=== PATIENT | female | born 1945 | race Caucasian/White ===

== ENCOUNTER 2018-01-13 06:34 | Day surgery (SDC) | payer MEDICARE, MEDICAID ==
[~2018-01-13] VITALS: Ht 167.6 cm; Wt 115.8 kg
[2018-01-13] MEDS ORDERED: ceFAZolin inj. 2,000 MG in normal saline soln 50 ML IV ONE ×3 (06:55→08:45)
[2018-01-13] MEDS ORDERED: normal saline 1000ml 1,000 ML IV PRN (06:55)
[2018-01-13 07:40] VITALS: BP 113/62
[2018-01-13 07:40] LABS: BASOPHILS # (AUTO) 0.1 X10'3 (0-0.2); BASOPHILS % (AUTO) 0.8 % (0-1); EOSINOPHILS # (AUTO) 0.3 X10'3 (0-0.9); EOSINOPHILS % (AUTO) 3.5 % (0-6); LYMPHOCYTES # (AUTO) 1.8 X10'3 (1.1-4.8); LYMPHOCYTES % (AUTO) 20.8 % (21-51); MEAN CORPUSCULAR HEMOGLOBIN 28.2 PG (27.0-31.0); MEAN CORPUSCULAR HGB CONC 32.1 % (33.0-36.5); MEAN PLATELET VOLUME 7.8 FL (7.4-10.4); MONOCYTES # (AUTO) 0.8 X10'3 (0-0.9); MONOCYTES % (AUTO) 9.1 % (2-12); NEUTROPHILS # (AUTO) 5.7 X10'3 (1.8-7.7); NEUTROPHILS % (AUTO) 65.8 % (42-75); PLATELET COUNT 403 X10'3 (140-440); RED BLOOD COUNT 2.85 X10'6 (4.20-5.60); RED CELL DISTRIBUTION WIDTH 19.8 % (11.5-14.5); WHITE BLOOD COUNT 8.7 X10'3 (4.5-11.0)
[2018-01-13] MEDS ORDERED: LISI10TA4 PO (07:44)
[2018-01-13] MEDS ORDERED: [UNRECOGNIZED DRUG - OTHER] PO (07:44)
[2018-01-13] MEDS ORDERED: ALBU18HF2 INH (07:44)
[2018-01-13] MEDS ORDERED: PROM25TA14 PO (07:44)
[2018-01-13] MEDS ORDERED: CLOP75TA35 PO (07:44)
[2018-01-13] MEDS ORDERED: GABA-532 PO (07:44)
[2018-01-13] MEDS ORDERED: ALLO100T PO (07:44)
[2018-01-13] MEDS ORDERED: METO50TA7 PO (07:44)
[2018-01-13] MEDS ORDERED: FOLI0.8T19 PO (07:44)
[2018-01-13] MEDS ORDERED: CEPH500C2 PO (07:44)
[2018-01-13] MEDS ORDERED: PHO667C PO (07:44)
[2018-01-13] MEDS ORDERED: TRAM50TA2 PO (07:44)
[2018-01-13] MEDS ORDERED: ATOR40TA PO (07:44)
[2018-01-13 07:55] LABS: ALBUMIN 2.6 G/DL (3.4-5.0); ANION GAP 13 (8-16); BLOOD UREA NITROGEN 51 MG/DL (7-18); BUN/CREATININE RATIO 6.2 (6.6-38.0); CALCIUM 8.3 MG/DL (8.5-10.1); CHLORIDE 97 MMOL/L (99-107); CREATININE 8.26 MG/DL (0.40-0.90); GLUCOSE 147 MG/DL (70-104); SODIUM 135 MMOL/L (135-145); TOTAL CARBON DIOXIDE 24.7 MMOL/L (24-32); eGFR 5 ML/MIN
[2018-01-13 07:57] LABS: INR 1.1 INR; PROTHROMBIN TIME 10.8 SECONDS (9.0-12.0)
[2018-01-13] MEDS ORDERED: LIDOcaine 1%/PF 5ML 10 MG/ML VIAL ONE (08:30)
[2018-01-13] MEDS ORDERED: normal saline 1000ml 1,000 ML IV SCH ×2 (08:33)
[2018-01-13] MEDS ORDERED: LIDOcaine 1%/PF 5ML 10 MG/ML VIAL SQ ONE (08:35)
[2018-01-13] MEDS ORDERED: midazolam 2 mg/2 ml injection IV PRN (08:35)
[2018-01-13] MEDS ORDERED: heparin 1,000 units/ml 10ml inj ICATH ONE (08:35)
[2018-01-13] MEDS ORDERED: fentaNYL/PF 50MCG/1 ML 2ML syringe IV PRN (08:35)
[2018-01-13] MEDS ORDERED: heparin 1,000unit/ml 10ml vial 10 ML ONE (08:36)
[2018-01-13] MEDS ORDERED: cephalexin 500mg capsule PO ONE (08:50)
[2018-01-13 09:40] VITALS: BP 112/47
[2018-01-13 09:55] VITALS: BP 95/38
[2018-01-13 10:10] VITALS: BP 114/45
[2018-01-13 10:25] VITALS: BP 96/71
[2018-01-13 10:40] VITALS: BP 92/69
== END 2018-01-13 11:10 | disposition home or self-care (01) ==
LOC: SSTAY O 06:34
PROVIDERS: ATTEND Radiology Diagnostic Radiology
DX: Z49.01 Encounter for fitting and adjustment of extracorporeal dialysis catheter (principal); I12.0 Hypertensive chronic kidney disease with stage 5 chronic kidney disease or end stage renal disease; E11.22 Type 2 diabetes mellitus with diabetic chronic kidney disease; N18.6 End stage renal disease; I25.10 Atherosclerotic heart disease of native coronary artery without angina pectoris; E66.9 Obesity, unspecified; I71.4 Abdominal aortic aneurysm, without rupture; J44.9 Chronic obstructive pulmonary disease, unspecified; K21.9 Gastro-esophageal reflux disease without esophagitis; I48.91 Unspecified atrial fibrillation; Z87.891 Personal history of nicotine dependence; Z95.5 Presence of coronary angioplasty implant and graft; Z98.41 Cataract extraction status, right eye; Z98.42 Cataract extraction status, left eye; Z88.5 Allergy status to narcotic agent; Z91.048 Other nonmedicinal substance allergy status; Z79.2 Long term (current) use of antibiotics; Z79.891 Long term (current) use of opiate analgesic; Z68.41 Body mass index [BMI] 40.0-44.9, adult; Z86.73 Personal history of transient ischemic attack (TIA), and cerebral infarction without residual deficits; Z86.69 Personal history of other diseases of the nervous system and sense organs; Z87.01 Personal history of pneumonia (recurrent); Z98.890 Other specified postprocedural states; Z79.899 Other long term (current) drug therapy
CPT/HCPCS: 36415; 36581; 77001; 80048; 85025; 85610; J0690; J1644; J2001; J7030; C1750; C1769

== ENCOUNTER 2018-01-25 10:49 | Day surgery (SDC) | payer MEDICARE, MEDICAID ==
[~2018-01-25] VITALS: Ht 167.6 cm; Wt 110.0 kg
[~2018-01-25 10:49] MED LIST: ALBU18HF2 INH; ALLO100T PO; ATOR40TA PO; CEPH500C2 PO; CLOP75TA35 PO; FOLI0.8T19 PO; GABA-532 PO; LISI10TA4 PO; METO50TA7 PO; PHO667C PO; PROM25TA14 PO; TRAM50TA2 PO; [UNRECOGNIZED DRUG - OTHER] PO
[2018-01-25] MEDS ORDERED: normal saline 1000ml 1,000 ML IV PRN (11:25)
[2018-01-25 11:27] VITALS: BP 134/74
[2018-01-25] MEDS ORDERED: cefazolin/dext.iso 2gm/50ml 50 ML IV ONE (11:30)
[2018-01-25] MEDS ORDERED: PHO667C PO (11:39)
[2018-01-25 12:05] LABS: BASOPHILS # (AUTO) 0.1 X10'3 (0-0.2); BASOPHILS % (AUTO) 1.2 % (0-1); EOSINOPHILS % (AUTO) 13.8 % (0-6); LYMPHOCYTES # (AUTO) 3.1 X10'3 (1.1-4.8); LYMPHOCYTES % (AUTO) 41.4 % (21-51); MEAN CORPUSCULAR HEMOGLOBIN 29.2 PG (27.0-31.0); MEAN CORPUSCULAR HGB CONC 32.8 % (33.0-36.5); MEAN CORPUSCULAR VOLUME 88.8 FL (78-98); MEAN PLATELET VOLUME 7.7 FL (7.4-10.4); MONOCYTES # (AUTO) 0.5 X10'3 (0-0.9); MONOCYTES % (AUTO) 6.5 % (2-12); NEUTROPHILS # (AUTO) 2.8 X10'3 (1.8-7.7); NEUTROPHILS % (AUTO) 37.1 % (42-75); PRE OP HEMATOCRIT 28.9 % (35.0-45.0); PRE OP PLATELET COUNT 507 X10'3 (140-440); RED BLOOD COUNT 3.25 X10'6 (4.20-5.60); RED CELL DISTRIBUTION WIDTH 19.1 % (11.5-14.5)
[2018-01-25 12:10] LABS: ALBUMIN 3.1 G/DL (3.4-5.0); ANION GAP 14 (8-16); BLOOD UREA NITROGEN 45 MG/DL (7-18); BUN/CREATININE RATIO 5.9 (6.6-38.0); CALCIUM 8.5 MG/DL (8.5-10.1); CHLORIDE 106 MMOL/L (99-107); CREATININE 7.67 MG/DL (0.40-0.90); GLUCOSE 101 MG/DL (70-104); POTASSIUM 5.2 MMOL/L (3.5-5.1); SODIUM 143 MMOL/L (135-145); eGFR 5 ML/MIN
[2018-01-25 12:11] LABS: INR 1.1 INR; PROTHROMBIN TIME 10.9 SECONDS (9.0-12.0)
[2018-01-25 12:19] LABS: PRE OP HEMOGLOBIN 9.5 g/dL (12.0-16.0)
[2018-01-25] MEDS ORDERED: heparin 1,000 units/ml 10ml inj ICATH ONE (13:35)
[2018-01-25] MEDS ORDERED: fentaNYL/PF 50MCG/1 ML 2ML syringe IV PRN (13:35)
[2018-01-25] MEDS ORDERED: midazolam 2 mg/2 ml injection IV PRN (13:35)
[2018-01-25] MEDS ORDERED: LIDOcaine 1%/PF 5ML 10 MG/ML VIAL SQ ONE (13:35)
[2018-01-25] MEDS ORDERED: midazolam 2 mg/2 ml injection ONE (13:38)
[2018-01-25] MEDS ORDERED: fentaNYL/PF 50MCG/1 ML 2ML syringe ONE (13:38)
[2018-01-25] MEDS ORDERED: LIDOcaine 1%/PF 5ML 10 MG/ML VIAL ONE (13:38)
[2018-01-25] MEDS ORDERED: heparin 1,000unit/ml 10ml vial 10 ML ONE (13:42)
[2018-01-25 14:35] VITALS: BP 153/73
[2018-01-25 14:50] VITALS: BP 146/62
== END 2018-01-25 15:00 | disposition home or self-care (01) ==
LOC: SSTAY O 10:49
PROVIDERS: ATTEND Radiology Diagnostic Radiology
DX: T82.49XA Other complication of vascular dialysis catheter, initial encounter (principal); Y83.8 Other surgical procedures as the cause of abnormal reaction of the patient, or of later complication, without mention of misadventure at the time of the procedure; Y92.89 Other specified places as the place of occurrence of the external cause; I12.0 Hypertensive chronic kidney disease with stage 5 chronic kidney disease or end stage renal disease; E11.22 Type 2 diabetes mellitus with diabetic chronic kidney disease; N18.6 End stage renal disease; I48.91 Unspecified atrial fibrillation; K21.9 Gastro-esophageal reflux disease without esophagitis; J44.9 Chronic obstructive pulmonary disease, unspecified; Z88.5 Allergy status to narcotic agent; Z91.048 Other nonmedicinal substance allergy status; Z79.891 Long term (current) use of opiate analgesic; Z86.73 Personal history of transient ischemic attack (TIA), and cerebral infarction without residual deficits; Z86.69 Personal history of other diseases of the nervous system and sense organs; Z87.891 Personal history of nicotine dependence; Z95.5 Presence of coronary angioplasty implant and graft; Z87.01 Personal history of pneumonia (recurrent); Z99.2 Dependence on renal dialysis; Z79.899 Other long term (current) drug therapy; Z98.890 Other specified postprocedural states
CPT/HCPCS: 36415; 36581; 77001; 80048; 82948; 85025; 85610; 99152; C1750; J0690; J1644; J2001; J2250; J3010; 99153; A9270

== ENCOUNTER 2018-03-17 08:23 | Day surgery (SDC) | payer MEDICARE, MEDICAID ==
[~2018-03-17] VITALS: Ht 168.9 cm; Wt 99.8 kg
[~2018-03-17 08:23] MED LIST changes: -CEPH500C2 PO; -PROM25TA14 PO; -[UNRECOGNIZED DRUG - OTHER] PO
[2018-03-17] MEDS ORDERED: normal saline 1000ml 1,000 ML IV PRN (08:40)
[2018-03-17] MEDS ORDERED: ceFAZolin 2gm in dextrose, iso 100 ML IV ONE (08:40)
[2018-03-17 09:11] LABS: BASOPHILS # (AUTO) 0.1 X10'3 (0-0.2); BASOPHILS % (AUTO) 1.1 % (0-1); EOSINOPHILS # (AUTO) 0.3 X10'3 (0-0.9); EOSINOPHILS % (AUTO) 4.2 % (0-6); HEMATOCRIT 43.6 % (35.0-45.0); HEMOGLOBIN 13.9 g/dl (12.0-16.0); LYMPHOCYTES # (AUTO) 2.6 X10'3 (1.1-4.8); LYMPHOCYTES % (AUTO) 32.1 % (21-51); MEAN CORPUSCULAR HEMOGLOBIN 29.1 PG (27.0-31.0); MEAN CORPUSCULAR HGB CONC 31.9 g/dL (33.0-36.5); MEAN CORPUSCULAR VOLUME 91.5 FL (78-98); MEAN PLATELET VOLUME 7.2 FL (7.4-10.4); MONOCYTES # (AUTO) 0.5 X10'3 (0-0.9); MONOCYTES % (AUTO) 6.6 % (2-12); NEUTROPHILS # (AUTO) 4.6 X10'3 (1.8-7.7); PLATELET COUNT 289 X10'3 (140-440); RED BLOOD COUNT 4.77 X10'6 (4.20-5.60); RED CELL DISTRIBUTION WIDTH 17.1 % (11.5-14.5); WHITE BLOOD COUNT 8.2 X10'3 (4.5-11.0)
[2018-03-17 09:22] LABS: ALBUMIN 3.1 G/DL (3.4-5.0); ANION GAP 12 (8-16); BLOOD UREA NITROGEN 36 MG/DL (7-18); BUN/CREATININE RATIO 5.9 (6.6-38.0); CALCIUM 9.8 MG/DL (8.5-10.1); CHLORIDE 97 MMOL/L (99-107); CREATININE 6.13 MG/DL (0.40-0.90); GLUCOSE 141 MG/DL (70-104); POTASSIUM 4.5 MMOL/L (3.5-5.1); SODIUM 136 MMOL/L (135-145); TOTAL CARBON DIOXIDE 26.8 MMOL/L (24-32); eGFR 7 ML/MIN
[2018-03-17 09:30] VITALS: BP 139/76
[2018-03-17] MEDS ORDERED: LEVO750T21 PO (09:54)
[2018-03-17] MEDS ORDERED: HYDR-4069 PO (09:54)
[2018-03-17] MEDS ORDERED: SEVE800T8 PO (09:54)
[2018-03-17] MEDS ORDERED: PROC25SU31 RC (09:55)
[2018-03-17] MEDS ORDERED: LIDOcaine 1%/PF 5ML 10 MG/ML VIAL ONE (10:53)
[2018-03-17] MEDS ORDERED: heparin 1,000unit/ml 10ml vial 10 ML ONE (11:05)
[2018-03-17 11:47] VITALS: BP 119/80
[2018-03-17 12:00] VITALS: BP 128/41
[2018-03-17 12:15] VITALS: BP 119/80
[2018-03-17 12:30] VITALS: BP 146/88
[2018-03-17 12:45] VITALS: BP 142/82
== END 2018-03-17 12:55 | disposition home or self-care (01) ==
LOC: SSTAY O 08:23
PROVIDERS: ATTEND Radiology Diagnostic Radiology
DX: N18.6 End stage renal disease (principal); Z79.01 Long term (current) use of anticoagulants; Z79.899 Other long term (current) drug therapy; Z88.6 Allergy status to analgesic agent; Z91.048 Other nonmedicinal substance allergy status; Z86.73 Personal history of transient ischemic attack (TIA), and cerebral infarction without residual deficits
CPT/HCPCS: 36415; 36581; 77001; 80048; 85025; C1750; J0690; J1644; J2001; J7030; A9270; C1769

== ENCOUNTER 2018-09-07 06:51 | Day surgery (SDC) | payer MEDICARE, MEDICAID ==
[2018-09-07] VITALS (7 sets, daily range): BP systolic 138–183; BP diastolic 68–95
[~2018-09-07] VITALS: Ht 167.6 cm; Wt 90.7 kg
[~2018-09-07 06:51] MED LIST changes: +HYDR-4069 PO; +LEVO750T21 PO; +PROC25SU31 RC; +SEVE800T8 PO
[2018-09-07] MEDS ORDERED: normal saline 1000ml 1,000 ML IV PRN (07:25)
[2018-09-07] MEDS ORDERED: tPA-cathflo 2 MG/2 ml IV flush ONE (08:07)
--- NOTE | 2018-09-07 08:15 | NUR ---
Dr Garcia and Moris RN here to administer TPA, prior to procedure. Unsuccessful IV attempts x2, picc nurse paged for assistance
[2018-09-07] MEDS ORDERED: alteplase 1 mg/ml 5ml syringe IJ ONE (08:20)
[2018-09-07] MEDS ORDERED: fentaNYL/PF 50MCG/1 ML 2ML syringe IV PRN (08:25)
[2018-09-07] MEDS ORDERED: LIDOcaine 1%/PF 5ML 10 MG/ML VIAL SQ ONE (08:25)
[2018-09-07] MEDS ORDERED: heparin 1,000 UNITS/NS 500ml 500 ML ICATH ONE (08:25)
[2018-09-07] MEDS ORDERED: midazolam 2 mg/2 ml injection IV PRN (08:25)
[2018-09-07] MEDS ORDERED: acetaminophen 325mg tablet PO PRN (08:45)
[2018-09-07] MEDS ORDERED: diphenhydrAMINE 25mg capsule PO ONE (08:45)
[2018-09-07 09:14] LABS: BASOPHILS # (AUTO) 0.1 X10'3 (0-0.2); BASOPHILS % (AUTO) 1.9 % (0-1); EOSINOPHILS # (AUTO) 0.5 X10'3 (0-0.9); EOSINOPHILS % (AUTO) 6.9 % (0-6); HEMATOCRIT 30.1 % (35.0-45.0); HEMOGLOBIN 9.7 g/dl (12.0-16.0); LYMPHOCYTES # (AUTO) 2.1 X10'3 (1.1-4.8); LYMPHOCYTES % (AUTO) 30.3 % (21-51); MEAN CORPUSCULAR HGB CONC 32.3 g/dL (33.0-36.5); MEAN PLATELET VOLUME 7.2 FL (7.4-10.4); MONOCYTES # (AUTO) 0.6 X10'3 (0-0.9); MONOCYTES % (AUTO) 8.1 % (2-12); NEUTROPHILS # (AUTO) 3.6 X10'3 (1.8-7.7); NEUTROPHILS % (AUTO) 52.8 % (42-75); PLATELET COUNT 313 X10'3 (140-440); RED BLOOD COUNT 3.24 X10'6 (4.20-5.60); RED CELL DISTRIBUTION WIDTH 18.7 % (11.5-14.5); WHITE BLOOD COUNT 6.9 X10'3 (4.5-11.0)
[2018-09-07 09:18] LABS: ALBUMIN 3.2 G/DL (3.4-5.0); ANION GAP 10 (8-16); BLOOD UREA NITROGEN 74 MG/DL (7-18); BUN/CREATININE RATIO 7.8 (6.6-38.0); CALCIUM 9.8 MG/DL (8.5-10.1); CHLORIDE 102 MMOL/L (99-107); CREATININE 9.47 MG/DL (0.40-0.90); GLUCOSE 100 MG/DL (70-104); POTASSIUM 5.9 MMOL/L (3.5-5.1); SODIUM 138 MMOL/L (135-145); TOTAL CARBON DIOXIDE 26.1 MMOL/L (24-32); eGFR 4 ML/MIN
--- NOTE | 2018-09-07 10:00 | NUR ---
Piv started in left AC by Colleen RN picc nurse
[2018-09-07 10:34] LABS: ANISOCYTOSIS 2+; PLATELET ESTIMATE NORMAL
[2018-09-07] MEDS ORDERED: fentaNYL/PF 50MCG/1 ML 2ML syringe ONE ×2 (10:39→11:23)
[2018-09-07] MEDS ORDERED: heparin 1,000 UNITS/NS 500ml 500 ML ONE (10:39)
[2018-09-07] MEDS ORDERED: midazolam 2 mg/2 ml injection ONE (10:39)
[2018-09-07] MEDS ORDERED: iohexol 300mg/ml 100ml inj. ONE (10:39)
[2018-09-07] MEDS ORDERED: hydrALAZINE 20mg/ml inj. IV ONE (11:03)
[2018-09-08] MEDS ORDERED: ASPI-1265 PO (09:29)
== END 2018-09-07 13:30 | disposition home or self-care (01) ==
LOC: SSTAY O 06:51
PROVIDERS: ATTEND Radiology Vascular & Interventional Radiology
DX: T82.858A Stenosis of other vascular prosthetic devices, implants and grafts, initial encounter (principal); Y83.8 Other surgical procedures as the cause of abnormal reaction of the patient, or of later complication, without mention of misadventure at the time of the procedure; I25.2 Old myocardial infarction; I12.0 Hypertensive chronic kidney disease with stage 5 chronic kidney disease or end stage renal disease; N18.6 End stage renal disease; Z98.890 Other specified postprocedural states; Z91.041 Radiographic dye allergy status; Z86.73 Personal history of transient ischemic attack (TIA), and cerebral infarction without residual deficits; Z95.0 Presence of cardiac pacemaker; Z88.6 Allergy status to analgesic agent; Z91.048 Other nonmedicinal substance allergy status; Z79.01 Long term (current) use of anticoagulants; Z79.899 Other long term (current) drug therapy
CPT/HCPCS: 36415; 36902; 80048; 85025; 99152; 99153; C1725; C1769; C1894; J0360; J1644; J2250; J2997; J3010; J7030; Q0163; Q9967

== ENCOUNTER 2018-09-08 08:12 | Day surgery (SDC) | payer MEDICARE, MEDICAID ==
[~2018-09-08] VITALS: Ht 167.6 cm; Wt 90.7 kg
[2018-09-08] VITALS (7 sets, daily range): BP systolic 140–179; BP diastolic 49–96
[2018-09-08] MEDS ORDERED: LIDOcaine 1%/PF 5ML 10 MG/ML VIAL SQ ONE (09:25)
[2018-09-08] MEDS ORDERED: fentaNYL/PF 50MCG/1 ML 2ML syringe IV PRN (09:25)
[2018-09-08] MEDS ORDERED: ASPI-1265 PO (09:29)
[2018-09-08] MEDS ORDERED: fentaNYL/PF 50MCG/1 ML 2ML syringe ONE (09:30)
[2018-09-08] MEDS ORDERED: LIDOcaine 1%/PF 5ML 10 MG/ML VIAL ONE (09:30)
--- NOTE | 2018-09-08 09:37 | NUR ---
EKG WAS DONE. ST DEPRESSION. EKG SHOWED TO DR GOLD. HE THOUGHT IT WAS DUE TO PT NEEDING DIALYSIS. PT TO ANGIO VIA ROSE MARIE VIA RN.
[2018-09-08] MEDS ORDERED: heparin 1,000unit/ml 10ml vial 10 ML ONE (09:38)
== END 2018-09-08 11:40 ==
LOC: SSTAY O 08:12
PROVIDERS: ATTEND Radiology Diagnostic Radiology
DX: T82.868A Thrombosis due to vascular prosthetic devices, implants and grafts, initial encounter (principal); N18.6 End stage renal disease; Y83.8 Other surgical procedures as the cause of abnormal reaction of the patient, or of later complication, without mention of misadventure at the time of the procedure; Z95.0 Presence of cardiac pacemaker; Z79.899 Other long term (current) drug therapy; Z88.6 Allergy status to analgesic agent; Z86.73 Personal history of transient ischemic attack (TIA), and cerebral infarction without residual deficits; Z79.01 Long term (current) use of anticoagulants
CPT/HCPCS: 36558; 76937; 77001; 93005; 99152; C1750; C1894; J1644; J3010; A9270

== ENCOUNTER 2018-09-19 06:33 | Day surgery (SDC) | payer MEDICARE, MEDICAID ==
[2018-09-19] VITALS (7 sets, daily range): BP systolic 120–147; BP diastolic 60–80
[~2018-09-19 06:33] MED LIST changes: +ASPI-1265 PO
[2018-09-19] MEDS ORDERED: normal saline 1000ml 1,000 ML IV PRN (06:55)
[2018-09-19] MEDS ORDERED: tPA-cathflo 2 MG/2 ml IV flush ONE ×2 (08:03→10:09)
[2018-09-19] MEDS ORDERED: fentaNYL/PF 50MCG/1 ML 2ML syringe ONE (08:51)
[2018-09-19] MEDS ORDERED: midazolam 2 mg/2 ml injection ONE (08:51)
[2018-09-19] MEDS ORDERED: LIDOcaine 1%/PF 5ML 10 MG/ML VIAL ONE (08:51)
[2018-09-19] MEDS ORDERED: heparin 1,000 UNITS/NS 500ml 500 ML ONE (08:52)
[2018-09-19] MEDS ORDERED: iohexol 300mg/ml 100ml inj. ONE (08:52)
[2018-09-19 09:18] LABS: BASOPHILS # (AUTO) 0.1 X10'3 (0-0.2); BASOPHILS % (AUTO) 1.5 % (0-1); EOSINOPHILS # (AUTO) 0.4 X10'3 (0-0.9); EOSINOPHILS % (AUTO) 5.7 % (0-6); HEMATOCRIT 31.2 % (35.0-45.0); HEMOGLOBIN 10.3 g/dl (12.0-16.0); LYMPHOCYTES # (AUTO) 2.3 X10'3 (1.1-4.8); LYMPHOCYTES % (AUTO) 31.7 % (21-51); MEAN CORPUSCULAR HGB CONC 32.9 g/dL (33.0-36.5); MEAN CORPUSCULAR VOLUME 94.3 FL (78-98); MEAN PLATELET VOLUME 7.5 FL (7.4-10.4); MONOCYTES # (AUTO) 0.5 X10'3 (0-0.9); MONOCYTES % (AUTO) 7.1 % (2-12); NEUTROPHILS # (AUTO) 3.9 X10'3 (1.8-7.7); PLATELET COUNT 314 X10'3 (140-440); RED BLOOD COUNT 3.31 X10'6 (4.20-5.60); RED CELL DISTRIBUTION WIDTH 20.3 % (11.5-14.5); WHITE BLOOD COUNT 7.2 X10'3 (4.5-11.0)
[2018-09-19 09:20] LABS: ALBUMIN 3.4 G/DL (3.4-5.0); ANION GAP 8 (8-16); BLOOD UREA NITROGEN 48 MG/DL (7-18); BUN/CREATININE RATIO 7.6 (6.6-38.0); CALCIUM 9.2 MG/DL (8.5-10.1); CHLORIDE 106 MMOL/L (99-107); CREATININE 6.28 MG/DL (0.40-0.90); GLUCOSE 98 MG/DL (70-104); SODIUM 141 MMOL/L (135-145); TOTAL CARBON DIOXIDE 27.2 MMOL/L (24-32); eGFR 7 ML/MIN
[2018-09-19 09:21] LABS: POTASSIUM 6.1 MMOL/L (3.5-5.1)
[2018-09-19 09:37] LABS: ANISOCYTOSIS 3+; PLATELET ESTIMATE NORMAL
[2018-09-19] MEDS ORDERED: heparin 1,000unit/ml 10ml vial 10 ML ONE (09:44)
[2018-09-19] MEDS ORDERED: APIX2.5T PO (13:39)
== END 2018-09-19 12:25 | disposition home or self-care (01) ==
LOC: SSTAY O 06:33
PROVIDERS: ATTEND Radiology Vascular & Interventional Radiology
DX: T82.868A Thrombosis due to vascular prosthetic devices, implants and grafts, initial encounter (principal); Y83.2 Surgical operation with anastomosis, bypass or graft as the cause of abnormal reaction of the patient, or of later complication, without mention of misadventure at the time of the procedure; Y92.89 Other specified places as the place of occurrence of the external cause; N18.6 End stage renal disease; Z86.73 Personal history of transient ischemic attack (TIA), and cerebral infarction without residual deficits; Z95.0 Presence of cardiac pacemaker; Z98.890 Other specified postprocedural states; Z79.899 Other long term (current) drug therapy; Z79.01 Long term (current) use of anticoagulants; Z88.5 Allergy status to narcotic agent; Z91.09 Other allergy status, other than to drugs and biological substances
CPT/HCPCS: 36415; 36905; 80048; 85025; 99152; 99153; C1725; C1757; C1769; C1894; J1644; J2250; J2997; J3010; J7030; Q9967